=== PATIENT | female | born 1945 | race Caucasian/White ===

== ENCOUNTER 2022-03-07 10:32 | Outpatient (CLI) | payer MEDICARE, SELFPAY | END 2022-03-07 10:33 | disposition home or self-care (01) | LOC: INJ CL 10:35 | PROVIDERS: PCP Family Medicine; Visit Provider Family Medicine | DX: M54.16 Radiculopathy, lumbar region (principal); M51.36 Other intervertebral disc degeneration, lumbar region | CPT/HCPCS: 64483; J1100; Q9966 ==

== ENCOUNTER 2022-11-30 11:44 | Outpatient (CLI) | payer MEDICARE, SELFPAY | END 2022-11-30 11:45 | disposition home or self-care (01) | LOC: AMB 12-04 09:23 | PROVIDERS: PCP Family Medicine; Visit Provider Family Medicine | DX: R53.1 Weakness (principal); R11.0 Nausea | CPT/HCPCS: A0425; A0427 ==

== ENCOUNTER 2022-11-30 11:59 | Emergency (ER) | payer MEDICARE, SELFPAY ==
[2022-11-30] VITALS (20 sets, daily range): BP systolic 44–181; BP diastolic 29–96; PULSE 89–104; RESP 18; TEMP 36.6; O2SAT 92–98; BMI 33.7
--- NOTE | 2022-11-30 12:48 | ED_ITS ---
HPI - Nausea/Vomiting/Diarrhea General Time Seen by Provider: 12:48 Date Seen: 11/30/22 Chief complaint: Nausea/Vomiting Stated complaint: Nausea Time Seen by Provider: 11/30/22 12:47 Source: patient, EMS and RN notes reviewed Mode of arrival: EMS Limitations: no limitations History of Present Illness HPI Narrative: Patient is a 77-year-old female brought in by ambulance from home. She tells me that she is ?very sick?. She was placed on doxycycline last week for sinus infection with nausea vomiting and diarrhea starting on 11/25. She is having difficulty keeping things in. Attempted to eat in orange this morning immediately threw it up. That prompted her to call 911. She is having abdominal cramping, not severe pain. No fevers noted but she does endorse some night sweats. She has not noted any blood in vomit or stools. She is not aware of any prior C difficile colitis. She states she is still coughing, still feeling postnasal drainage, feels the cough is maybe worsening. MD elicited complaint: nausea, vomiting and diarrhea Related Data Previous Rx's Medication Instructions Recorded ondansetron 4 mg disintegrating 4 mg PO Q8H #15 tabs 11/30/22 tablet Allergies Allergy/AdvReac Type Severity Reaction Status Date / Time shellfish derived Allergy Verified 11/30/22 12:05 Review of Systems Status of ROS: Reports: 10 or more systems reviewed and unremarkable except as noted in History and below [facility] Social History Smoking Status: Never smoker Do you use any of these nicotine containing products: None Second hand tobacco smoke exposure: Yes How often do you have a drink containing alcohol: never How often do you have six or more drinks on one occasion: Never AUDIT-C Alcohol total score: 0 Non-prescribed substance use: denies use service: No Exam Const: Vital Signs, click to edit/add: Vital Signs - 24 hr 11/30/22 12:05 11/30/22 12:25 11/30/22 12:30 Temperature 97.9 F Pulse Rate 89 90 Pulse Rate [Left P ulse Oximeter] 95 Respiratory Rate 18 Blood Pressure Blood Pressure [Le ft Forearm] 181/92 H Pulse Oximetry 92 95 95 Oxygen Delivery Me thod Room Air 11/30/22 12:31 11/30/22 12:45 11/30/22 12:49 Temperature Pulse Rate 91 91 Pulse Rate [Left P ulse Oximeter] Respiratory Rate Blood Pressure 157/88 H Blood Pressure [Le ft Forearm] Pulse Oximetry 94 94 97 Oxygen Delivery Me thod 11/30/22 13:00 11/30/22 13:02 11/30/22 13:15 Temperature Pulse Rate 97 98 92 Pulse Rate [Left P ulse Oximeter] Respiratory Rate Blood Pressure 147/94 H Blood Pressure [Le ft Forearm] Pulse Oximetry 96 98 95 Oxygen Delivery Me thod 11/30/22 13:46 11/30/22 14:00 11/30/22 14:03 Temperature Pulse Rate 96 92 90 Pulse Rate [Left P ulse Oximeter] Respiratory Rate Blood Pressure 159/85 H Blood Pressure [Le ft Forearm] Pulse Oximetry 96 95 97 Oxygen Delivery Me thod 11/30/22 14:23 11/30/22 14:30 Temperature Pulse Rate 104 H 91 Pulse Rate [Left P ulse Oximeter] Respiratory Rate Blood Pressure Blood Pressure [Le ft Forearm] Pulse Oximetry 96 97 Oxygen Delivery Me thod Documenting provider has reviewed patient's vital signs: yes Common normals: no apparent distress, average body habitus, oriented x3, no limitations, healthy appearing and alert General appearance: cooperative, comfortable, well kempt and well developed HENMT: Common normals: normocephalic, head/scalp atraumatic, hearing grossly normal bilaterally, external ears normal, external nose normal, nasal mucous membranes and turbinates normal and moist oral mucous membranes Head and scalp: normocephalic and atraumatic Nose: external nose normal and nasal mucous membranes and turbinates normal External ear: external ears normal Eye: Common normals: PERRL, EOMs intact bilaterally, conjunctivae normal and no scleral icterus Conjunctiva: conjunctiva(e) normal Pupil: PERRL Neck & C-Spine: Common normals: full ROM, no lymphadenopathy, supple, no meningeal signs, no JVD and thyroid normal Thyroid: thyroid normal Resp: Common normals: normal respiratory effort, no retractions, no use of accessory muscles and clear to auscultation bilaterally Auscultation: clear to auscultation bilaterally Cardio: Common normals: no JVD, regular rate, regular rhythm, S1 normal heart sound, S2 normal heart sound, no gallops, no clicks and no murmurs Rate: regular rate Rhythm: regular rhythm Heart sounds: S1 normal and S2 normal GI: Common normals: Normal to inspection, nondistended, normoactive bowel sounds present, soft to palpation, non-tender, no hepatosplenomegaly and no masses Palpation: soft and no hepatosplenomegaly Extremity: Common normals: normal to inspection and no pedal edema Neuro: Common normals: oriented x3 Sensorium/orientation: alert Meningeal signs: no meningeal signs Psych: Appearance: well kempt Course Course Hospital Course: Patient already has an IV in place by EMS, blood sugar was 120 for with EMS. She is still feeling nauseated despite 4 mg of IV Zofran from EMS. Will load her with another 4 mg IV Zofran, initiate some IV fluids. Labs here to draw blood work, am ordering a full complement of labs. We will start with chest x- ray giving her ongoing respiratory symptoms, will do flat and upright of her abdomen just to see the character of the bowel. C difficile colitis is certainly possibility here. This could be antibiotic associated diarrhea and worsening respiratory infections such as pneumonia. Ongoing sinusitis is potentially consideration. Will do a COVID test on her as she does have respiratory symptoms and may require hospitalization. Reevaluation(s) Reevaluation #1: Patient is feeling slightly better with the 2nd dose of Zofran in the IV fluids. Tolerating a few ice chips. Reviewed with her that her white count is low which would generally support a viral etiology. Her COVID test came back negative. Reviewed with her that we really need to collect stool. She is agreeable to try to take in some orals to see if that will induced diarrhea for her. Time: 14:35 Reevaluation #2: Discussed with patient hospitalization versus observation overnight with IV fluids and symptomatic treatment, collection of stool studies. I do not feel like she needs more advanced imaging at this time. Was talking to the hospitalist about her to see if they would be willing to keep her and patient told nursing staff she wants to go home. Will send her home with the collection kit for the viral stool and C difficile with a prescription of Zofran. Time: 15:22 Vital Signs Vital signs: Initial Vital Signs Temperature 97.9 F 11/30/22 12:05 Temperature Source Temporal Artery Scan 11/30/22 12:05 Pulse Rate 95 11/30/22 12:05 Pulse Rhythm Regular 11/30/22 12:05 Respiratory Rate 18 11/30/22 12:05 Blood Pressure 181/92 H 11/30/22 12:05 Blood Pressure Mean 121 H 11/30/22 12:05 Blood Pressure Position Supine 11/30/22 12:05 Pulse Oximetry 92 11/30/22 12:05 Oxygen Delivery Method Room Air 11/30/22 12:05 Vital Signs Temperature 97.9 F 11/30/22 12:05 Pulse Rate 95 11/30/22 12:05 Respiratory Rate 18 11/30/22 12:05 Blood Pressure 181/92 H 11/30/22 12:05 Pulse Oximetry 92 11/30/22 12:05 Oxygen Delivery Method Room Air 11/30/22 12:05 Temperature 97.9 F 11/30/22 12:05 Pulse Rate 91 11/30/22 14:30 Respiratory Rate 18 11/30/22 12:05 Blood Pressure 159/85 H 11/30/22 14:03 Pulse Oximetry 97 11/30/22 14:30 Oxygen Delivery Method Room Air 11/30/22 12:05 MDM - Nausea/Vomiting/Diarrhea Lab Data Attestation: I reviewed the patient's lab results. Labs: Lab Results 11/30/22 11/30/22 Range/Units 13:05 13:16 WBC 3.62 L (4.50-11.00) K/uL RBC 3.91 L (4.00-5.20) m/uL Hgb 11.5 L (12.0-16.0) gm/dL Hct 33.9 (33.0-51.0) % MCV 87 (80-100) fL MCH 29 (26-34) pg MCHC 34 (32-36) gm/dL RDW Coeff of [place]mond 12.2 (11.5-15.5) % Plt Count 180 (140-440) K/uL Neut % (Auto) 66.8 (42.0-72.0) % Lymph % (Auto) 24.6 (20-44) % [place] % (Auto) 7.7 (0.0-11.0) % Eos % (Auto) 0.3 (0.0-7.0) % Baso % (Auto) 0.3 (0.0-3.0) % Neut # (Auto) 2.40 (1.7-7.0) K/uL Lymph # (Auto) 0.90 (0.90-2.90) K/uL [place] # (Auto) 0.30 (0.00-0.90) K/UL Eos # (Auto) 0.00 (0.00-0.50) K/uL Baso # (Auto) 0.00 (0.00-0.30) K/uL Sodium 131 L (135-149) mmol/L Potassium 4.7 (3.6-5.1) mmol/L Chloride 99 (96-114) mmol/L Carbon Dioxide 24 (20-32) mmol/L BUN 11 (7-30) mg/dL Creatinine 0.6 (0.5-1.5) mg/dL Estimated Creat Clear 40.21 Estimated GFR 94 ml/min Glucose 111 (60-115) mg/dL Lactate 0.8 (0.5-1.9) mmol/L Calcium 8.9 (8.4-10.6) mg/dL Total Bilirubin 0.4 (0.1-1.5) mg/dL AST 32 (12-35) U/L ALT 24 (4-35) U/L Alkaline Phosphatase 74 (40-150) U/L C-Reactive Protein 0.9 (0.5-1.0) mg/dL Total Protein 7.0 (6.0-8.3) g/dL Albumin 4.1 (3.3-5.0) g/dL SARS-CoV-2 (PCR) Negative SARS-CoV-2 (Negative) Imaging Data Abdominal x-ray: Attestation: I have reviewed the pertinent imaging results. Radiologist's impression: Patient: EDWARD SOLIS Facility:?[facility] Patient ID:?[id number] Site Patient ID:?[id number]. Site :?[id number] Study:?XRay Abdomen/Pelvis 2 VIEWS-11/30/2022 1:47:50 PM Ordering Physician:Fausto Reyez Final Report: Indication: Nausea, vomiting, diarrhea. Technique: Abdomen 4 view. Comparison: None. Findings/Impression: Bowel: Bowel pattern is normal. Soft tissues: No sign of free air. No sign of soft tissue mass. No suspicious calcifications. Cholecystectomy clips. Bones: Unremarkable for age. Posterior lower lumbar hardware fixation. Dictated by Juno Palencia MD @ 11/30/2022 2:09:27 PM (Electronic Signature) Chest x-ray: Attestation: I have reviewed the pertinent imaging results. Radiologist's impression: Patient: EDWARD SOLIS Facility:?[facility] Patient ID:?[id number] Site Patient ID:?[id number]. Site :?[id number] Study:?XRay Chest 2 VIEWS-11/30/2022 1:48:27 PM Ordering Physician:Fausto Reyez Final Report: Indication: Ongoing cough, nausea vomiting and diarrhea Comparison: None available. Technique: PA and lateral views of the chest Findings: Mild hyperinflation and chronic interstitial change without dense consolidation, effusion, or pneumothorax. The cardiomediastinal silhouette is within normal limits. The bony thorax is grossly intact. Impression: Hyperinflation and chronic interstitial change without dense consolidation. Dictated by Bola Resendez MD @ 11/30/2022 2:15:40 PM (Electronic Signature) Discharge Plan Discharge Clinical Impression: Gastroenteritis Patient Disposition: Home, Self-Care Condition: Stable Instructions: Gastroenteritis (ED), Nutrition Tips for Relief of Diarrhea (ED) Additional Instructions: Need to take frequent small sips of clear liquids while you are awake to stay hydrated. Use Zofran to help control nausea and vomiting. Once you are able, can increase your foods following the handouts. If you are not improving within the next couple days, feel that you are worsening at any point, do recommend re- evaluation. If diarrhea is continuing, do recommend that you collect for the viral stool panel as well as the C difficile. You would bring those back here to the hospital for testing. Activity Level: Activity as Tolerated Prescriptions: New ondansetron 4 mg tablet,disintegrating 4 mg PO Q8H Qty: 15 0RF Follow Up/Referrals: Venice Penn DO [Primary Care Provider] - Stand Alone Forms: MyHealth Info Instructions Critical Care Time Critical Care Time Critical Care Time: No
--- NOTE | 2022-11-30 13:04 | CRLHL7_ITS ---
For Patients: As a result of the Century Cures Act, medical imaging exams and procedure reports are released immediately into your electronic medical record. You may view this report before your referring provider. If you have questions, please contact your health care provider. Indication: Ongoing cough, nausea vomiting and diarrhea Comparison: None available. Technique: PA and lateral views of the chest Findings: Mild hyperinflation and chronic interstitial change without dense consolidation, effusion, or pneumothorax. The cardiomediastinal silhouette is within normal limits. The bony thorax is grossly intact. Impression: Hyperinflation and chronic interstitial change without dense consolidation. Dictated by Bola Resendez MD @ 11/30/2022 2:15:40 PM (Electronically Signed)
--- NOTE | 2022-11-30 13:04 | CRLHL7_ITS ---
For Patients: As a result of the Century Cures Act, medical imaging exams and procedure reports are released immediately into your electronic medical record. You may view this report before your referring provider. If you have questions, please contact your health care provider. Indication: Nausea, vomiting, diarrhea. Technique: Abdomen 4 view. Comparison: None. Findings/Impression: Bowel: Bowel pattern is normal. Soft tissues: No sign of free air. No sign of soft tissue mass. No suspicious calcifications. Cholecystectomy clips. Bones: Unremarkable for age. Posterior lower lumbar hardware fixation. Dictated by Juno Palencia MD @ 11/30/2022 2:09:27 PM (Electronically Signed)
[2022-11-30] MEDS: 0.9 % SODIUM CHLORIDE 1000 ml 1,000 ML 500 ML IV (13:08)
[2022-11-30 13:13] LABS: Lactate* 0.8 mmol/L (0.5-1.9)
[2022-11-30 13:14] LABS: Basophils Percent Auto 0.3 % (0.0-3.0); Eosinophils Percent Auto 0.3 % (0.0-7.0); Hematocrit 33.9 % (33.0-51.0); Hemoglobin* 11.5 gm/dL (12.0-16.0); Immature Granulocytes Pct Auto 0.3 %; Lymphocytes Percent Auto 24.6 % (20-44); Mean Corpuscular HGB Conc 34 gm/dL (32-36); Mean Corpuscular Hemoglobin 29 pg (26-34); Mean Corpuscular Volume 87 fL (80-100); Monocytes Percent Auto 7.7 % (0.0-11.0); Neutrophils Percent Auto 66.8 % (42.0-72.0); Platelet Count* 180 K/uL (140-440); RDW Coefficient of Variation % 12.2 % (11.5-15.5); Red Blood Count 3.91 m/uL (4.00-5.20); White Blood Count* 3.62 K/uL (4.50-11.00)
[2022-11-30] MEDS: ONDANSETRON 2 MG/ML inj 4 MG IVP (13:14)
[2022-11-30 13:18] LABS: Slide Review Reflex No
[2022-11-30 13:35] LABS: Albumin* 4.1 g/dL (3.3-5.0); Chloride* 99 mmol/L (96-114)
[2022-11-30 13:36] LABS: Potassium* 4.7 mmol/L (3.6-5.1); Sodium* 131 mmol/L (135-149)
[2022-11-30 13:38] LABS: Bilirubin Total* 0.4 mg/dL (0.1-1.5); Creatinine* 0.6 mg/dL (0.5-1.5); Est. Creatinine Clearance* 40.21; Estimated Glomerular Filt Rate 94 ml/min
[2022-11-30 13:39] LABS: Alanine Aminotransferase* 24 U/L (4-35); Alkaline Phosphatase* 74 U/L (40-150); Aspartate Amino Transferase* 32 U/L (12-35); Blood Urea Nitrogen* 11 mg/dL (7-30); Calcium* 8.9 mg/dL (8.4-10.6); Carbon Dioxide* 24 mmol/L (20-32); Glucose* 111 mg/dL (60-115)
[2022-11-30 13:42] LABS: C Reactive Protein* 0.9 mg/dL (0.5-1.0)
[2022-11-30 13:55] LABS: SARS PCR* Negative SARS-CoV-2 (Negative)
--- NOTE | 2022-11-30 16:05 | ED.NURSE ---
was given stool collection container. understands to return them to the ed if diarrhea continues. to stop doxycycline. is aware with plan. son génesis drove her home.
== END 2022-11-30 16:20 | disposition home or self-care (01) ==
PROVIDERS: Emergency Provider Family Medicine; PCP Family Medicine
DX: K52.9 Noninfective gastroenteritis and colitis, unspecified (principal)
CPT/HCPCS: 36415; 71046; 74019; 80053; 83605; 85025; 86140; 87252; 87493; 87635; 94761; 96374; 99283; 99284; J2405; J7030

== ENCOUNTER 2024-02-26 06:27 | Day surgery (SDC) | payer MEDICARE, SELFPAY ==
[2024-02-26] VITALS (10 sets, daily range): BP systolic 130–170; BP diastolic 75–85; PULSE 80–85; RESP 16; TEMP 36.6–36.9; O2SAT 92–95; BMI 33.5
[2024-02-26] MEDS: SODIUM CHLORIDE 0.9 % (FLUSH) 10 ML SYRINGE IVF (06:50)
[2024-02-26] MEDS: LACTATED RINGERS 1000 ML 1,000 ML 100 ML IV (06:50)
--- NOTE | 2024-02-26 07:36 | W.PM.H&PU ---
History & Physical Update History & Physical Update H&P Reviewed and patient assessed: No changes noted
[2024-02-26] MEDS: CEFAZOLIN 2 GM INJ IVP (07:48)
[2024-02-26] MEDS: BUPIVACAINE 0.25% 30 ML INJECTION (07:59)
--- NOTE | 2024-02-26 08:44 | PM.GSPRC ---
Operative Note Date of procedure: 02/26/24 Pre-op diagnosis: Posterior neck lipoma Post-op diagnosis: Same Type of Procedure: Excision of posterior neck lipoma Indications: Patient is a 78-year-old female who presented to clinic with a large mass of the posterior neck. Ultrasound was performed with findings consistent with a large lipoma. Given location and size of the lesion it was recommended this be excised in the operating room. Risks and benefits of operative intervention were discussed at length with the patient. Risks included but was not limited to: Bleeding, infection, risk of damage to surrounding structures, possible need for additional procedures and postoperative complications such as pneumonia, pulmonary emboli or SC. All questions and concerns were addressed with the patient agreeing to proceed. Procedure Description: After discussing the risks and benefits of the procedure, the patient signed informed consent.? The operative site was marked and the patient was brought to the operating room and placed on the operating table in supine position.? Care was taken to pad the patient's pressure points.?? The patient was then intubated by anesthesia.? Patient was placed in a lateral decubitus position, with all pressure points padded.? The operative site was then prepped and draped in the usual sterile fashion.? A time-out was then performed. We transverse incision was made directly over the mass. Dissection was carried down through subcutaneous tissues with electrocautery. And encapsulated fatty mass was encountered. This was circumferentially dissected free. The mass was removed in its entirety and measured 6 x 5 x 2 cm in size. The cavity was irrigated with saline. Hemostasis was assured with electrocautery. Several deep incisions of 3-0 Vicryl were used to decrease the size of the resulting cavity. The incision measured 4 cm and was closed in layers with interrupted 3 0 Vicryl and running 4-0 Monocryl. Local anesthetic of 0.25% bupivacaine was used to anesthetize the area. Sterile dressings were then applied. ? The patient was then woken and transported to the recovery area in stable condition. ? The patient tolerated the procedure well. Findings: Lipomatous mass measuring 6 x 5 x 2 cm in size. Anesthesia: GETA Surgeon: Jennifer Murillo MD Estimated blood loss (mL): 5 Additional Specimen Information: Posterior neck mass Condition: stable Disposition: PACU
--- NOTE | 2024-02-26 08:48 | SUR.PHASEI ---
noting petechia under both eyes from paper tape from anesthesia career development facilitator explained to pt regarding petechia pt denies any pain no drainage noted
== END 2024-02-26 09:55 | disposition home or self-care (01) ==
PROVIDERS: PCP Family Medicine; Visit Provider Surgery
PROC: (CPT 21552; principal; 2024-02-26 07:30)
DX: D17.0 Benign lipomatous neoplasm of skin and subcutaneous tissue of head, face and neck (principal)
CPT/HCPCS: 21552; 88271; 88305; J0665; J0690; J1100; J2405; J2704; J2710; J3010; J7120